=== PATIENT | female | born 1970 | race Caucasian/White ===

== ENCOUNTER 2020-03-15 01:21 | Outpatient (CLI) | payer OTHER, SELFPAY ==
[2020-03-15 22:13] LABS: SARS-CoV-2 RNA PCR Negative
== END 2020-03-15 01:22 | disposition home or self-care (01) ==
LOC: ANHCOVIDDT 01:22
PROVIDERS: Visit Provider Internal Medicine Gastroenterology
DX: Z01.812 Encounter for preprocedural laboratory examination (principal); Z20.828 Contact with and (suspected) exposure to other viral communicable diseases
CPT/HCPCS: 87635; C9803; U0003

== ENCOUNTER 2020-03-18 00:10 | Day surgery (SDC) | payer OTHER, SELFPAY ==
[2020-03-12 13:34] VITALS: BMI 28.8
--- NOTE | 2020-03-17 14:30 | WPDANESEPPF ---
Anes - Initial Pre Proc Eval Procedure: Operation Date: 03/18/20 07:30 Proposed Procedures p Screening Colonoscopy - David Cain MD Date/Time: 03/17/20 14:30 Surgeon: David Cain MD Pre Op Diagnosis: Neoplasm Screening Patient Data Age: 49 Gender: F Height: 1.68 m Weight: 81 kg Allergies Allergy/AdvReac Type Severity Reaction Status Date / Time No Known Allergies Allergy Mild Verified 03/18/20 06:35 Home Medications Medication Instructions Recorded Confirmed Type metoprolol succinate 100 mg 100 mg PO DAILY #90 tablet 07/13/19 03/12/20 Rx tablet,extended release 24 hr atorvastatin 10 mg tablet 10 mg PO DAILY #90 tablet 08/13/19 03/12/20 Rx zolpidem 10 mg tablet 10 mg PO ONCE #90 tablet 11/28/19 03/12/20 Rx venlafaxine [Effexor XR] 75 mg PO DAILY 03/12/20 03/12/20 History Patient hx anesthesia problems: none Family hx anesthesia problems: none PMFSH Past Medical History Medical History (Updated 03/17/20 @ 14:31 by Danish León MD) Anxiety Essential (primary) hypertension Insomnia Mixed hyperlipidemia Overweight (BMI 25.0-29.9) Post menopausal problems Family History Family History Father Hypertension Family history of coronary artery disease Mother Family history of lung cancer, Onset Age: 45 Patient's mother is Other Diabetes mellitus Social History Social History Smoking status: Never smoker Second hand tobacco smoke exposure: No Alcohol intake: current Substance use type: does not use Living arrangements: with family Gender identity (if verbalized by the patient): Female Sexual Orientation (if Verbalized by the Patient): Straight or Heterosexual Spiritual care concerns: No Anes - Eval Final PreProcedure Day of Procedure 03/17/20 14:30 Patient weight: overweight Heart: regular rate and rhythm Lungs: clear to auscultation and normal air movement Airway: Mallampati scale class II Neurological: alert and oriented Last oral intake: >/= 8 hours ASA classification: II Emergent: no Anesthetic plan: proceed Anesthesia type and monitoring: general GIVS Informed Consent: The patient's anesthetic plan and its attendant risks and benefits were discussed with the patient/family/POA. Questions were solicited and answers provided to the satisfaction of the patient/family/POA.
[2020-03-18 06:36] VITALS: BP 136/85; PULSE 102; RESP 22; TEMP 37; O2SAT 97; BMI 29.6
[2020-03-18] MEDS: LACTATED RINGERS 1,000 ML 150 ML IV CONT (06:49)
--- NOTE | 2020-03-18 08:03 | PM.HPGS ---
History of Present Illness History of Present Illness Consent: Risks, benefits, and alternatives have been discussed and questions answered. Patient agrees to proceed with procedure. Chief complaint: Neoplasm Screening Narrative: Karli Hunt is a 49 year old female here for first screening colonoscopy Review of Systems Constitutional: Constitutional: Denies headache(s) and Denies weakness Eyes: Eyes: Denies blurry vision ENT: Reports Normal hearing present, Denies headache(s) and Denies neck pain Cardiovascular: Cardiovascular: Denies chest pain and Denies dyspnea Respiratory: Respiratory: Denies dyspnea Gastrointestinal: Gastrointestinal: Reports no additional gastrointestinal complaints Genitourinary: Genitourinary: Denies dysuria Musculoskeletal: Musculoskeletal: Denies neck pain Integumentary/Breasts: Skin/Breast: Denies dry skin Neurologic: Reports Normal hearing present, Denies headache(s) and Denies weakness Psychiatric: Psychiatric: Denies anxiety Endocrine: Endocrine: Denies change in body appearance Hematologic/Lymphatic: Hematologic/Lymphatic: Denies easy bleeding Allergic/Immunologic: Allergic/Immunologic: Denies urticaria [facility] Past Medical History Medical History (Updated 03/18/20 @ 08:03 by David Cain MD) Anxiety Colon cancer screening Essential (primary) hypertension Insomnia Mixed hyperlipidemia Overweight (BMI 25.0-29.9) Post menopausal problems Family History Family History Father Hypertension Family history of coronary artery disease Mother Family history of lung cancer, Onset Age: 45 Patient's mother is Other Diabetes mellitus Social History Social History Smoking status: Never smoker Second hand tobacco smoke exposure: No Alcohol intake: current Substance use type: does not use Living arrangements: with family Gender identity (if verbalized by the patient): Female Sexual Orientation (if Verbalized by the Patient): Straight or Heterosexual Spiritual care concerns: No Meds Home Medications and Allergies Home Medications Medication Instructions Recorded Confirmed Type metoprolol succinate 100 mg 100 mg PO DAILY #90 tablet 07/13/19 03/12/20 Rx tablet,extended release 24 hr atorvastatin 10 mg tablet 10 mg PO DAILY #90 tablet 08/13/19 03/12/20 Rx zolpidem 10 mg tablet 10 mg PO ONCE #90 tablet 11/28/19 03/12/20 Rx venlafaxine [Effexor XR] 75 mg PO DAILY 03/12/20 03/12/20 History Allergies Allergy/AdvReac Type Severity Reaction Status Date / Time No Known Allergies Allergy Mild Verified 03/18/20 06:35 Vital Signs Vital Signs - 24 hr 03/18/20 06:36 Temperature 98.6 F Pulse Rate 102 H Respiratory Rate 22 H Blood Pressure 136/85 Pulse Oximetry 97 Exam Const: General: comfortable and no acute distress HENMT: General nose exam: Normal nares present Eyes: General: appearance normal, both eyes and all related structures Neck: Neck: no JVD Resp: Auscultation: clear to auscultation bilaterally Cardio: Rate: regular rate Rhythm: regular rhythm GI: Inspection: non-distended GI Palp: Yes Soft to palpation Skin: General skin exam: normal color Neuro: General: gait normal Speech: normal speech Extrem: General: normal to inspection Psych: Mental Status: mental status grossly normal Assessment and Plan Assessment and plan (1) Colon cancer screening: Code(s): Z12.11 - Encounter for screening for malignant neoplasm of colon Status: Acute Assessment and Plan: will proceed with colonoscopy
[2020-03-18 08:05] VITALS: BP 121/66; PULSE 80; RESP 21; O2SAT 100
[2020-03-18 08:15] VITALS: BP 129/68; PULSE 81; RESP 20; O2SAT 100
[2020-03-18 08:29] VITALS: BP 130/78; PULSE 80; RESP 18; O2SAT 100
== END 2020-03-18 08:45 | disposition home or self-care (01) ==
PROVIDERS: PCP Family Medicine; Visit Provider Internal Medicine Gastroenterology
PROC: 0DJD8ZZ Inspection of Lower Intestinal Tract, Via Natural or Artificial Opening Endoscopic (ICD-10-PCS; CPT 45378; principal; 2020-03-18 07:30)
DX: Z12.11 Encounter for screening for malignant neoplasm of colon (principal); D12.2 Benign neoplasm of ascending colon; K64.8 Other hemorrhoids; I10 Essential (primary) hypertension; E78.2 Mixed hyperlipidemia; F41.9 Anxiety disorder, unspecified
CPT/HCPCS: 45385; 88305; J2001; J2704; J7120

== ENCOUNTER → 2020-04-24 16:23 | Outpatient (CLI) | payer OTHER, SELFPAY ==
--- NOTE | ~2020-04-24 | MM_ITS ---
EXAMINATION: MM screening mile BI w loulou HISTORY: Screening TECHNIQUE: Craniocaudal and mediolateral oblique 3-D tomosynthesis images were obtained and synthetic 2-D images were generated. CAD analysis was submitted and interpreted. COMPARISON: Comparison to multiple prior studies sequentially, with oldest reviewed study dated 11/2013. BREAST PARENCHYMAL COMPOSITION: The breasts are heterogenously dense, which may obscure small masses. FINDINGS: There are bilateral focal asymmetries. Right breast asymmetry is medially located on CC vie w and left breast asymmetry is inferior aspect of the left breast on MLO view. IMPRESSION: 1. Bilateral breast asymmetries. 2. Additional mammographic views and possible breast ultrasound are recommended. BI-RADS Category 0: Incomplete: Needs additional imaging evaluation. Reviewed, dictated and finalized at location A. ESS COACH IMPRESSION: 1. Bilateral breast asymmetries. 2. Additional mammographic views and possible breast ultrasound are recommended . BI-RADS Category 0: Incomplete: Needs additional imaging evaluation.
== END ==
DX: Z12.31 Encounter for screening mammogram for malignant neoplasm of breast (principal); R92.8 Other abnormal and inconclusive findings on diagnostic imaging of breast
CPT/HCPCS: 77063; 77067

== ENCOUNTER → 2020-06-02 09:27 | Outpatient (CLI) | payer OTHER, SELFPAY ==
--- NOTE | ~2020-06-02 | MMUS_ITS ---
EXAMINATION: MM diagnostic mile BI w loulou, US breast LT limited HISTORY: Bilateral mammographic asymmetries reported on 04/24/2020 bilateral digital screening mammog fani TECHNIQUE: Additional 3-D tomosynthesis images of both breasts were performed and synthetic 2-D image s were generated. CAD analysis was submitted and interpreted. High resolution lower outer quadrant le ft breast ultrasound was performed. COMPARISON: 04/24/2020 bilateral digital screening mammogram FINDINGS: MAMMOGRAPHIC FINDINGS: No reproducible mass or architectural distortion is noted in the right breast. The asymmetry reported on the right cc view in the posterior inner right breast is not confirmed on Tomosynthesis coned com pression CC image or Tomosynthesis ML view. Possible subcentimeter approximately 7 mm circumscribed opacity is suggested in the anterior lower ou ter quadrant of the left breast; ultrasound correlation was obtained. ULTRASOUND: There is prominent branching duct at 4:00 4 cm from the nipple, which corresponds to the mammographic finding. There is no suspicious mass or shadowing in the lower outer quadrant of the left breast. IMPRESSION: 1. No mammographic evidence for malignancy in either breast 2. Routine annual mammographic screening is recommended. BI-RADS Category 2: Benign finding(s). Reviewed, dictated and finalized at location A. ER TENDER IMPRESSION: 1. No mammographic evidence for malignancy in either breast 2. Routine annual mammographic screening is recommended. BI-RADS Category 2: Benign finding(s).
== END ==
DX: R92.2 Inconclusive mammogram (principal)
CPT/HCPCS: 76642; 77062; 77066; G0279

== ENCOUNTER → 2022-06-04 16:03 | Outpatient (CLI) | payer OTHER, SELFPAY ==
--- NOTE | ~2022-06-04 | MM_ITS ---
EXAMINATION: MM screening [facility] BI w loulou HISTORY: Screening mammogram TECHNIQUE: Craniocaudal and mediolateral oblique 3-D tomosynthesis images were obtained and synthetic 2-D images were generated. CAD analysis was submitted and interpreted. COMPARISON: 06/02/2020, 04/24/2020, 06/05/2018, 04/23/2016 BREAST PARENCHYMAL COMPOSITION: There are scattered areas of fibroglandular density. FINDINGS: No suspicious mass, calcification, or architectural distortion are identified in either maria eugenia ast to suggest malignancy. There has been no suspicious interval change. IMPRESSION: 1. No mammographic evidence of malignancy. 2. Recommend routine screening mammography in one year. BI-RADS Category 1: Negative Reviewed, dictated and finalized at location A. LINE ENGINEER
== END ==
PROVIDERS: PCP Family Medicine
DX: Z12.31 Encounter for screening mammogram for malignant neoplasm of breast (principal)
CPT/HCPCS: 77063; 77067

== ENCOUNTER 2022-11-02 11:33 | Outpatient (CLI) | payer OTHER, SELFPAY ==
--- NOTE | ~2022-11-02 | XR_ITS ---
AP view of the pelvis and AP and lateral views of the bilateral hips Clinical history: Pain Findings: No acute fracture or dislocation is seen. Osseous alignment is anatomic. Bilateral hip and SI joint spaces are preserved. Soft tissues are unremarkable. Impression: No significant abnormality is seen. Reviewed, dictated and finalized at location . Impression: No significant abnormality is seen.
--- NOTE | ~2022-11-02 | XR_ITS ---
XR knee LT 3V 11/02/2022 12:07 Indication: Left knee pain Procedure: 4 views left knee Comparison: No prior studies for comparison. Findings: No fracture, subluxation or dislocation. No significant joint effusion. No foreign bodies. Impression: 1: No significant bone or joint abnormality. Reviewed, dictated and finalized at location L. Impression: 1: No significant bone or joint abnormality.
--- NOTE | ~2022-11-02 | XR_ITS ---
XR knee RT 3V 11/02/2022 12:08 INDICATION: Chronic bilateral knee pain PROCEDURE: 4 views right knee COMPARISON: No prior studies for comparison. FINDINGS: Fracture, dislocation or subluxation is not identified. No joint effusion. No significant j oint space narrowing. The soft tissues appear within normal limits. No foreign bodies are identified . IMPRESSION: 1: No significant bone or joint abnormality. Reviewed, dictated and finalized at location L.
== END 2022-11-02 11:34 | disposition home or self-care (01) ==
PROVIDERS: PCP Family Medicine; Visit Provider Physician Assistant Medical
DX: M25.551 Pain in right hip (principal); M25.552 Pain in left hip; M25.561 Pain in right knee; M25.562 Pain in left knee
CPT/HCPCS: 73521; 73562

== ENCOUNTER → 2022-11-10 13:20 | Outpatient (CLI) | payer OTHER, SELFPAY ==
--- NOTE | ~2022-11-10 | XR_ITS ---
EXAM: XR lumbar spine 2-3V DATE: 11/10/2022 13:41 HISTORY: no injury lbp mid to left side for years . COMPARISON: None available. FINDINGS: Severe thoracolumbar scoliosis. 5 nonrib-bearing lumbar-type vertebral bodies. Pedicles int act. Normal vertebral body alignment. Vertebral body heights preserved. Multilevel disc space narrowi ng and marginal osteophytosis, severe at L5-S1, mild at the remaining lumbar levels. The level severe mid and lower lumbar facet hypertrophy/sclerosis. No fracture or dislocation. IMPRESSION: Severe scoliosis. Severe degenerative disc disease at L5-S1. Severe mid and lower lumbar facet arthropathy. Reviewed, dictated and finalized at location K.
== END ==
PROVIDERS: PCP Family Medicine; Visit Provider Physician Assistant Medical
DX: M41.9 Scoliosis, unspecified (principal); M51.37 Other intervertebral disc degeneration, lumbosacral region
CPT/HCPCS: 72100

== ENCOUNTER 2023-10-21 09:25 | Outpatient (CLI) | payer OTHER, SELFPAY ==
--- NOTE | ~2023-10-21 | US_ITS ---
Abdominal Sonogram: Real-time sonographic imaging of the abdomen was performed. Clinical History: Abnormal blood chemistry findings Findings: The liver appears mildly echogenic, with no evidence of mass lesion or bile duct dilatatio n. Main portal vein demonstrates normal direction of flow. The spleen is normal in size without evide nce of focal lesion. The gallbladder is well distended, and contains echogenic gallstones. No gallbl adder wall thickening evident. The common bile duct measures 5 mm. The visualized pancreas, aorta, a nd IVC are unremarkable. The right kidney measures 10.9 cm in length and the left kidney measures 9. 3 cm. There is no hydronephrosis or renal calculus. Impression: Probable fatty infiltration of the liver. Cholelithiasis. Reviewed, dictated and finalized at [facility]. Impression: Probable fatty infiltration of the liver. Cholelithiasis.
== END 2023-10-21 09:26 ==
PROVIDERS: PCP Family Medicine; Visit Provider Nurse Practitioner Family
DX: R79.89 Other specified abnormal findings of blood chemistry (principal); K80.20 Calculus of gallbladder without cholecystitis without obstruction
CPT/HCPCS: 76700

== ENCOUNTER 2024-02-27 14:51 | Outpatient (CLI) | payer OTHER, SELFPAY ==
--- NOTE | ~2024-02-27 | MM_ITS ---
EXAMINATION: MM screening mile BI w loulou HISTORY: Screening TECHNIQUE: Craniocaudal and mediolateral oblique 3-D tomosynthesis images were obtained and synthetic 2-D images were generated. CAD analysis was submitted and interpreted. COMPARISON: Comparison to multiple prior studies sequentially, with oldest reviewed study dated 01/2016. BREAST PARENCHYMAL COMPOSITION: Not dense: There are scattered areas of fibroglandular density. FINDINGS: There are developing bilateral breast asymmetries in the upper inner quadrant of the right breast posteriorly and the lower inner quadrant of the left breast anteriorly. There are no suspiciou s calcifications. IMPRESSION: 1. Developing bilateral breast asymmetries. 2. Additional mammographic views and possible breast ultrasound are recommended. BI-RADS Category 0: Incomplete: Needs additional imaging evaluation. Reviewed, dictated and finalized at location B. IMPRESSION: 1. Developing bilateral breast asymmetries. 2. Additional mammographic views and possible breast ultrasound are recommended . BI-RADS Category 0: Incomplete: Needs additional imaging evaluation.
== END 2024-02-27 14:52 | disposition home or self-care (01) ==
LOC: MICIMG 14:53
PROVIDERS: PCP Family Medicine; Visit Provider Family Medicine
DX: Z12.31 Encounter for screening mammogram for malignant neoplasm of breast (principal); R92.8 Other abnormal and inconclusive findings on diagnostic imaging of breast
CPT/HCPCS: 77063; 77067

== ENCOUNTER 2024-03-27 08:25 | Outpatient (CLI) | payer BC, SELFPAY ==
--- NOTE | ~2024-03-27 | MMUS_ITS ---
EXAMINATION: MM diagnostic mile BI w loulou, US breast LT limited HISTORY: Bilateral breast asymmetries TECHNIQUE: Additional 3-D tomosynthesis images of the breasts were performed and synthetic 2-D images were generated. CAD analysis was submitted and interpreted. High resolution limited left breast ultr asound was performed. COMPARISON: 02/27/2024, 06/04/2022, 06/02/2020 BREAST PARENCHYMAL COMPOSITION:Not Dense. There are scattered areas of fibroglandular density. FINDINGS: MAMMOGRAPHIC FINDINGS: The right breast asymmetry effaces with spot compression. No persistent mass lesion or distortion. Sp ot compression views of the left subareolar region demonstrate persistent probable ovoid mass in the lower, inner subareolar region measuring approximate 7 mm. ULTRASOUND: Sonographic imaging of the left subareolar region demonstrates dilated ducts at the left 6:00 region. No intraductal mass seen. No other sonographic abnormality seen. IMPRESSION: Dilated ducts at the left 6:00 position in the subareolar region. No intraductal mass seen. No other mass seen. 6 month follow-up left mammogram/ultrasound recommended to assure stability. No significant abnormality of the right breast. BI-RADS category 3, probably benign findings. Reviewed, dictated and finalized at location . AND FIXTURE REPAIRER IMPRESSION: Dilated ducts at the left 6:00 position in the subareolar region. No intraduct al mass seen. No other mass seen. 6 month follow-up left mammogram/ultrasound r ecommended to assure stability. No significant abnormality of the right breast. BI-RADS category 3, probably benign findings.
== END 2024-03-27 08:26 | disposition home or self-care (01) ==
PROVIDERS: PCP Family Medicine; Visit Provider Physician Assistant Medical
DX: N64.89 Other specified disorders of breast (principal)
CPT/HCPCS: 76642; 77062; 77066; G0279

== ENCOUNTER 2024-07-23 11:09 | Outpatient (CLI) | payer BC, SELFPAY ==
--- NOTE | ~2024-07-23 | MR_ITS ---
EXAMINATION: MR abdomen wo/w con DATE: 07/23/2024 12:33 INDICATION: Fatty change of liver, not elsewhere classified. Abnormal blood chemistry. TECHNIQUE: Magnetic resonance imaging (MRI) of the abdomen was performed without and with 19 mL Multi Alexis intravenous contrast. COMPARISON: Abdomen ultrasound 10/21/2023 FINDINGS: There is diffuse hepatic steatosis. There are cysts in the liver measuring up to 10 mm. There are gal lstones in the gallbladder, which is normal in size. The spleen, pancreas, adrenal glands, and kidney s are normal. There are no dilated loops of bowel. There are no pathologically enlarged lymph nodes. There is no free intraperitoneal fluid. IMPRESSION: 1. Diffuse hepatic steatosis. 2. Cholelithiasis. Reviewed, dictated and finalized at location B.
--- OUTSIDE RECORDS SUMMARY | 2024-07-23 13:25 | XMS_ITS | Clinical Summary ---
Author Organization [facility] Address [address] [place] [address] Care Team Providers Care Textiles And Clothing Teacher Name Role Phone Jones Shelton MD Primary Care Provider Source Comments [facility],non-owned Affiliates and Associated Physician Practices is amultiple site organization consisting of ambulatory clinics and hospital sitesin [place], [place], [place] and [place]. This disclosure is being madepursuant to the Care Everywhere program and may not contain all information available regarding this patient. Last updated 18.[facility] Allergies No known active allergies Medications * Be aware that medications may not be up to date on this document. Alwaysverify current medications with the patient. Medication Sig Dispensed Refills Start Date End Date Status ATORVASTATIN CALCIUM PO Active Cholecalciferol (VITAMIN D-3 PO) Active Zolpidem Tartrate (ZOLPIDEM PO) Active predniSONE (DELTASONE) 20 MG tablet Take 1 tablet by mouth 2 times daily 14 tablet 05/25/2017 Active albuterol HFA (VENTOLIN HFA) 108 (90 BASE) MCG/ACT inhaler Inhale 2 puffs by mouth every 4 hours as needed for Wheezing or Cough 1 Inhaler 05/25/2017 Active Active Problems No known active problems Social History Tobacco Use Types Packs/Day Years Used Date Smoking Tobacco: Never Smokeless Tobacco: Never Sex and Gender Information Value Date Recorded Sex Assigned at Not on file Gender Identity Not on file Sexual Orientation Not on file Last Filed Vital Signs Vital Sign Reading Time Taken Comments Blood Pressure 126/84 05/25/2017 2:35 PM NATIONAL SALES CONSULTANT Pulse 98 05/25/2017 2:35 PM NATIONAL SALES CONSULTANT Temperature 36.6 C (97.9 F) 05/25/2017 2:35 PM NATIONAL SALES CONSULTANT Respiratory Rate 16 05/25/2017 2:35 PM NATIONAL SALES CONSULTANT Oxygen Saturation 96% 05/25/2017 2:35 PM NATIONAL SALES CONSULTANT Inhaled Oxygen Concentration - - Weight 77.1 kg (170 lb) 05/25/2017 2:35 PM NATIONAL SALES CONSULTANT Height 167.6 cm (5' 6 ) 05/25/2017 2:35 PM NATIONAL SALES CONSULTANT Body Mass Index 27.44 05/25/2017 2:35 PM NATIONAL SALES CONSULTANT Plan of Treatment Health Maintenance Due Date Last Done Comments COLOGUARD (AGES 45-75) - COL ON CA SCREENING 1969 COLON MONITORING 1969 COLONOSCOPY - COLON CA SCREENING 1969 CT COLONOGRAPHY - COLON CA SCREENING 1969 Colorectal Cancer Screening 1969 FIT - COLON CA SCREENING 1969 FLEX SIG - COLON CA SCREENING 1969 MAMMOGRAM 1969 PAP SMEAR 1969 HIV SCREENING 1984 HEPATITIS C SCREENING 07/27/1987 DTAP/TDAP/TD VACCINES (1 - Tdap) 1988 HEPATITIS B VACCINE (1 of 3 - 19+ 3-dose series) 1988 SCREENING FOR DIABETES 02/16/2017 PNEUMOCOCCAL VACCINE 50+ (1 of 1 - PCV) 08/01/2019 ZOSTER VACCINE (1 of 2) 08/01/2019 COVID-19 VACCINE (2023-2 5 season) 2024 INFLUENZA VACCINE (#1) 2024 DEPRESSION SCREENING 05/16/2024 HIB VACCINE Aged Out No longer eligi ble based on patient's age to complete this topic HPV VACCINE Aged Out No longer eligi ble based on patient's age to complete this topic MENINGOCOCCAL (Group B) VACCINE Aged Out No longer eligible based on patient's age to complete this topic MENINGOCOCCAL VACCINE Aged Out No ernestina arline eligible based on patient's age to complete this topic PNEUMOCOCCAL VACCINE Aged Out No long er eligible based on patient's age to complete this topic Care Teams Textiles And Clothing Teacher Relationship Specialty Start Date End Date Jones Shelton MD [address] [place] [address] PCP - General Family Medicine 02/16/17
--- OUTSIDE RECORDS SUMMARY | 2024-07-23 13:26 | XMS_ITS | Encounter Summary ---
Author Organization [facility] Address [address] [place] [address] Care Team Providers Care Donor Support Technician Name Role Phone Jones Shelton MD Primary Care Provider Encounter Details Date Type Department Care Team (Late [facility]) Description 07/07/2023 Lab Requisition [facility] - [facility] Lab [address] [place] [address] Mariela Nguyen MD [address] [place] [address] Social History Tobacco Use Types Packs/Day Years Used Date Smoking Tobacco: Never Smokeless Tobacco: Never Sex and Gender Information Value Date Recorded Sex Assigned at Not on file Gender Identity Not on file Sexual Orientation Not on file documented as of this encounter Plan of Treatment Not on file documented as of this encounter Visit Diagnoses Not on filedocumented in this encounter Care Teams Donor Support Technician Relationship Specialty Start Date End Date Jones Shelton MD [address] [place] [address] PCP - General Family Medicine 02/16/17 documented as of this encounter
--- OUTSIDE RECORDS SUMMARY | 2024-07-23 13:26 | XMS_ITS | Patient Health Summary ---
Author Organization [facility] [employer] Address [address] [place] [address] Care Team Providers Care Logging Specialist Name Role Phone Jones Shelton MD Primary Care Provider [phone] Note from [facility] [facility],non-owned Affiliates and Associated Physician Practices is amultiple site organization consisting of ambulatory clinics and hospital sitesin [place], [place], [place] and [place]. This disclosure is being madepursuant to the Care Everywhere program and may not contain all information available regarding this patient. Last updated 18.[facility] Allergies No known active allergies Medications * Be aware that medications may not be up to date on this document. Alwaysverify current medications with the patient. * ATORVASTATIN CALCIUM PO * Cholecalciferol (VITAMIN D-3 PO) * Zolpidem Tartrate (ZOLPIDEM PO) * predniSONE (DELTASONE) 20 MG tablet(Started 05/25/2017) Take 1 tablet by mouth 2 times daily * albuterol HFA (VENTOLIN HFA) 108 (90 BASE) MCG/ACT inhaler(Started 05/25/2017) Inhale 2 puffs by mouth every 4 hours as needed for Wheezing or Cough Active Problems No known active problems Social History Tobacco Use Types Packs/Day Years Used Date Smoking Tobacco: Never Smokeless Tobacco: Never Sex and Gender Information Value Date Recorded Sex Assigned at Not on file Gender Identity Not on file Sexual Orientation Not on file Last Filed Vital Signs Vital Sign Reading Time Taken Comments Blood Pressure 126/84 05/25/2017 2:35 PM RECORD CHANGER TESTER Pulse 98 05/25/2017 2:35 PM RECORD CHANGER TESTER Temperature 36.6 C (97.9 F) 05/25/2017 2:35 PM RECORD CHANGER TESTER Respiratory Rate 16 05/25/2017 2:35 PM RECORD CHANGER TESTER Oxygen Saturation 96% 05/25/2017 2:35 PM RECORD CHANGER TESTER Inhaled Oxygen Concentration - - Weight 77.1 kg (170 lb) 05/25/2017 2:35 PM RECORD CHANGER TESTER Height 167.6 cm (5' 6 ) 05/25/2017 2:35 PM RECORD CHANGER TESTER Body Mass Index 27.44 05/25/2017 2:35 PM RECORD CHANGER TESTER Procedures * DERMATOPATHOLOGY(Performed 07/07/2023) * STREP A SCREEN - POINT OF CARE (AMB) STL(Performed 02/16/2017) Performed for Acute pharyngitis, unspecified etiology Results * DERMATOPATHOLOGY (07/07/2023 3:33 AM RECORD CHANGER TESTER) Case Report Dermatopathology Report Case: [id number] Authorizing Provider: Keyona Garcia DO Collected: 07/07/2023 03:33 AM Ordering Location: [facility] DermPath Lab Received: 07/08/2023 12:30 PM Pathologist: Julissa Sullivan MD Specimen: Skin, mid crown 11:04 AM [facility] DERMATOPATHOLOGY LABORATORY Final Diagnosis Specimen A. SKIN, mid crown: SEBORRHEIC KERATOSIS, INFLAMED; SUPERFICIAL PORTIONS OF (L82.0) (see microscopic description) 11:04 AM [facility] DERMATOPATHOLOGY LABORATORY Clinical History ISK vs SCC, Growing Irritated 11:04 AM [facility] DERMATOPATHOLOGY LABORATORY Gross Description Specimen A: Received is one formalin filled container labeled with the patient's name and designated mid crown. The specimen consists of a shave biopsy measuring 6x6x1 mm. Jar 0. 11:04 AM [facility] DERMATOPATHOLOGY LABORATORY Microscopic Description Specimen A. SKIN, mid crown: There are superficial portions of hyperkeratosis, parakeratosis, papillomatosis, and acanthosis of the epidermis. 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 11:04 AM [facility] DERMATOPATHOLOGY LABORATORY Disclaimer An external and internal positive and negative controls are appropriate for the histochemical, immunohistochemical and immunofluorescence stain(s) in this case (if any), except where stated explicitly. The performance characteristics of the stain(s) cited in this report were developed and its performance characteristic determined by the Dermatopathology Laboratory at [facility], directed by Dr. Alfredo Berman. These tests need not be, and therefore are not, approved by the [place] Food and Drug Administration. The tests are used for clinical purposes. Billing Codes Specimen Charges Stain Charges 95527 1 4 11:04 AM [facility] DERMATOPATHOLOGY LABORATORY Embedded Images 4 11:04 AM [facility] DERMATOPATHOLOGY LABORATORY Pathology/Cytolo gy TISSUE SPECIMEN FROM SKIN / Unknown 07/07/2023 3:33 AM RECORD CHANGER TESTER 07/08/2023 12:30 PM RECORD CHANGER TESTER Keyona Garcia DO LAB - PATHOLOGY/C YTOLOGY ORDERABLES DERMATOPATHOLOGY LABORATORY [facility] - Department of Dermatology [facility] Medicine [address] [place] [address], [address] [phone] * STREP A SCREEN (02/16/2017) Strep A Rapid POCT Negative Negative Strep A Internal Control Present Lot # [id number] Expiration Date [id number] Throat ENTIRE THROAT (SURFACE REGION OF NECK) / Unknown 02/16/2017 Obie De FLOW NURSE-VP CUSTOMER SERV[facility] LAB - POINT OF CARE ORDERABLES Care Teams Logging Specialist Relationship Specialty Start Date End Date Jones Shelton MD [address] [place] [address] PCP - General Family Medicine 02/16/17
--- OUTSIDE RECORDS SUMMARY | 2024-07-23 13:26 | XMS_ITS | Referral Summary ---
Author Organization [facility] [employer] Address [address] [place] [address] Care Team Providers Care Hand Heel Seat Fitter Name Role Phone Jones Shelton MD Primary Care Provider [phone] Source Comments [facility] [employer],non-owned Affiliates and Associated Physician Practices is amultiple site organization consisting of ambulatory clinics and hospital sitesin [place], [place], [place] and [place]. This disclosure is being madepursuant to the Care Everywhere program and may not contain all information available regarding this patient. Last updated 18.[facility] [employer] Allergies No known active allergies Medications * [...] Comments Blood Pressure 126/84 05/25/2017 2:35 PM METHODS AND PROCEDURES ANALYST Pulse 98 05/25/2017 2:35 PM METHODS AND PROCEDURES ANALYST Temperature 36.6 C (97.9 F) 05/25/2017 2:35 PM METHODS AND PROCEDURES ANALYST Respiratory Rate 16 05/25/2017 2:35 PM METHODS AND PROCEDURES ANALYST Oxygen Saturation 96% 05/25/2017 2:35 PM METHODS AND PROCEDURES ANALYST Inhaled Oxygen Concentration - - Weight 77.1 kg (170 lb) 05/25/2017 2:35 PM METHODS AND PROCEDURES ANALYST Height 167.6 cm (5' 6 ) 05/25/2017 2:35 PM METHODS AND PROCEDURES ANALYST Body Mass Index 27.44 05/25/2017 2:35 PM METHODS AND PROCEDURES ANALYST Plan of Treatment Not on file Care Teams Hand Heel Seat Fitter Relationship Specialty Start Date End Date Jones Shelton MD [address] [place] [address] PCP - General Family Medicine 02/16/17
--- OUTSIDE RECORDS SUMMARY | 2024-07-23 13:26 | XMS_ITS | Clinical Summary ---
Author Organization [facility] Address [address] [place] [address] Care Team Providers Care Trapeze Artist Name Role Phone Unavailable Primary Care Provider Unavailabl e Immunizations Name Administration Dates Next Due PFIZER COVID-19 (ORIGINAL FO RMULATION, PURPLE CAP) mRNA, LNP-S, PF, 30 MCG/0.3 ML DOSE 07/26/2020,07/05/2020 Social History Tobacco Use Types Packs/Day Years Used Date Smoking Tobacco: Never Assessed Comments Unknown Sex and Gender Information Value Date Recorded Sex Assigned at Not on file Legal Sex Female 6:02 PM PHOTO EQUIPMENT TECHNICIAN Gender Identity Not on file Sexual Orientation Not on file Plan of Treatment Health Maintenance Due Date Last Done Comments Cervical Cancer Screening Pa p Smear (Age 30 to 64) Every 3 Years 1969 Colorectal Cancer Screening Colonoscopy (10 Years) 1969 Annual Physical 1972 Hepatitis C 08/01/1987 DTaP, Tdap and Td Vaccines ( 1 - Tdap) 1988 Hepatitis B Vaccines (1 of 3 - 19+ 3-dose series) 1988 Cervical Cancer Screening Pa p with HPV Testing (Age 30 to 64) Every 5 Years 08/01/1999 Cervical Cancer Screening wi th HPV 08/01/1999 Mammogram Screening 2009 Zoster Vaccines (1 of 2) 08/01/2019 COVID-19 Vaccine (2023-2 5 season) 2024 07/26/2020, 07/05/2020 Influenza Adult (#1) 2024 Meningococcal B Vaccine Aged Out No l onger eligible based on patient's age to complete this topic Meningococcal Vaccine Aged Out No ernestina arline eligible based on patient's age to complete this topic Pneumococcal Vaccine: Pediatrics (0 to 5 Years) and At-Risk Patients (6 to 64 Years) Aged Out No longer eligible b ased on patient's age to complete this topic RSV Immunizations Under 20 Months Aged Out No longer eligible b ased on patient's age to complete this topic
--- OUTSIDE RECORDS SUMMARY | 2024-07-23 13:26 | XMS_ITS | Encounter Summary ---
Author Organization [facility] Address [address] [place] [address] Care Team Providers Care Lace Machine Operator Name Role Phone Jones Shelton MD Primary Care Provider [phone] Encounter Details Date Type Department Care Team (Late [facility]) Description 07/08/2023 Lab Requisition [facility] - DermPath Lab [address] [place] [address] Keyona Garcia DO [address] [facility] [address] [place] [address] Social History Tobacco Use Types Packs/Day Years Used Date Smoking Tobacco: Never Smokeless Tobacco: Never Sex and Gender Information Value Date Recorded Sex Assigned at Not on file Gender Identity Not on file Sexual Orientation Not on file documented as of this encounter Plan of Treatment Not on file documented as of this encounter Procedures Procedure Name Priority Date/Time Associated Diagnosis Comments DERMATOPATHOLOGY Routine 07/07/2023 3:33 AM CHECKING DEPARTMENT SUPERVISOR documented in this encounter Results * DERMATOPATHOLOGY (07/07/2023 3:33 AM CHECKING DEPARTMENT SUPERVISOR) Case Report Dermatopathology Report Case: [id number] Authorizing Provider: Keyona Garcia DO Collected: 07/07/2023 03:33 AM Ordering Location: [facility] DermPath Lab Received: 07/08/2023 12:30 PM Pathologist: Julissa Sullivan MD Specimen: Skin, mid crown 11:04 AM [facility] DERMATOPATHOLOGY LABORATORY Final Diagnosis Specimen A. SKIN, mid crown: SEBORRHEIC KERATOSIS, INFLAMED; SUPERFICIAL PORTIONS OF (L82.0) (see microscopic description) 11:04 AM [facility] DERMATOPATHOLOGY LABORATORY Clinical History ISK vs SCC, Growing Irritated 11:04 AM [facility] DERMATOPATHOLOGY LABORATORY Gross Description Specimen A: Received is one formalin filled container labeled with the patient's name and designated mid crown. The specimen consists of a shave biopsy measuring 6x6x1 mm. Jar 0. 11:04 AM [facility] DERMATOPATHOLOGY LABORATORY Microscopic Description Specimen A. SKIN, mid crown: There are superficial portions of hyperkeratosis, parakeratosis, papillomatosis, and acanthosis of the epidermis. 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 11:04 AM [facility] DERMATOPATHOLOGY LABORATORY Disclaimer An external and internal positive and negative controls are appropriate for the histochemical, immunohistochemical and immunofluorescence stain(s) in this case (if any), except where stated explicitly. The performance characteristics of the stain(s) cited in this report were developed and its performance characteristic determined by the Dermatopathology Laboratory at [facility], directed by Dr. Alfredo Berman. These tests need not be, and therefore are not, approved by the [place] Food and Drug Administration. The tests are used for clinical purposes. Billing Codes Specimen Charges Stain Charges 70632 1 11:04 AM [facility] DERMATOPATHOLOGY LABORATORY Embedded Images 11:04 AM [facility] DERMATOPATHOLOGY LABORATORY Pathology/Cytolo gy TISSUE SPECIMEN FROM SKIN / Unknown 07/07/2023 3:33 AM CHECKING DEPARTMENT SUPERVISOR 07/08/2023 12:30 PM CHECKING DEPARTMENT SUPERVISOR Keyona Garcia DO LAB - PATHOLOGY/C YTOLOGY ORDERABLES DERMATOPATHOLOGY LABORATORY [facility] - Department of Dermatology [address], [address] [phone] documented in this encounter Visit Diagnoses Not on filedocumented in this encounter Care Teams Lace Machine Operator Relationship Specialty Start Date End Date Jones Shelton MD [address] [place] [address] PCP - General Family Medicine 02/16/17 documented as of this encounter
--- OUTSIDE RECORDS SUMMARY | 2024-07-23 13:26 | XMS_ITS | Clinical Summary ---
Author Organization [facility] Address [address] [place] [address] Phone Care Team Providers Care Consultative Sales Associate Name Role Phone Jones Shelton MD Primary Care Provider [phone] Allergies Active Allergy Reactions Criticality Noted Date Comments Hydrocodone-Acetaminophen Nausea and Vomiting,Dizziness Low 05/07/2021 Medications atorvastatin (LIPITOR) 10 mg tablet Take 10 mg by mouth daily. AM Active metoprolol succinate (TOPROL XL) 100 mg Extended Release 24 hour tablet Take 100 mg by mouth daily. PM Active venlafaxine (EFFEXOR XR) 75 mg Extended Release 24 hour capsule Take 75 mg by mouth daily. Active zolpidem (AMBIEN) 5 mg tablet Take 5 mg by mouth nightly as needed for Insomnia. Active multivit-min/iron /folic acid/K (ADULTS MULTIVITAMIN ORAL) Take by mouth. Active L. acidophilus/L. rhamnosus (PROBIOTIC ORAL) Take by mouth. Active MAGNESIUM ORAL Take by mouth. Active docosahexaenoic acid/epa (FISH OIL ORAL) Take by mouth. Active Active Problems No known active problems Social History Tobacco Use Types Packs/Day Years Used Date Smoking Tobacco: Never Smokeless Tobacco: Never Alcohol Use Standard Drinks/Week Comments Yes 1 (1 standard drink = 0.6 oz pur e alcohol) Comments No Sex and Gender Information Value Date Recorded Sex Assigned at Not on file Legal Sex Female 3:03 PM OFFICE MACHINE MECHANIC Gender Identity Not on file Sexual Orientation Not on file Last Filed Vital Signs Vital Sign Reading Time Taken Comments Blood Pressure 161/82 05/12/2021 9:05 AM OFFICE MACHINE MECHANIC Pulse 90 05/12/2021 9:05 AM OFFICE MACHINE MECHANIC Temperature 36.8 C (98.3 F) 05/12/2021 9:05 AM OFFICE MACHINE MECHANIC Respiratory Rate 18 05/12/2021 9:05 AM OFFICE MACHINE MECHANIC Oxygen Saturation 97% 05/12/2021 9:05 AM OFFICE MACHINE MECHANIC Inhaled Oxygen Concentration - - Weight 85.4 kg (188 lb 4.8 oz) 05/11/2021 9:23 A M OFFICE MACHINE MECHANIC Height 167.6 cm (5' 6 ) 05/11/2021 9:23 AM OFFICE MACHINE MECHANIC Body Mass Index 30.39 05/11/2021 9:23 AM OFFICE MACHINE MECHANIC Plan of Treatment Health Maintenance Due Date Last Done Comments DTAP/TDAP/TD VACCINES (1 - Tdap) 1988 HEPATITIS B VACCINES (1 of 3 - 19+ 3-dose series) 1988 CERVICAL CANCER SCREENING 08/01/1999 BREAST CANCER SCREENING 2009 COLORECTAL SCREENING 2014 Colorectal Cancer Screening 2014 FIT-DNA Q 3 years 2014 FIT/FOBT Q 1 year 2014 Flex Sig/CT Colonography Q 5 years 2014 ZOSTER VACCINE (1 of 2) 08/01/2019 INFLUENZA VACCINE (#1) 2023 COVID-19 Vaccine ( season) 2024, 07/05/2020 Insurance Advance Directives For more information, please contact: [phone] Documents on File Type Date Recorded Patient Scrap Baller Expl anation Advance Directive POA 05/07/2021 1:31 PM Advance Directive POA * Full Code (Latest Code Status on File) Date Activated Date Inactivated Comments 05/11/2021 2:23 PM 05/12/2021 1:01 PM * Full Code Date Activated Date Inactivated Comments 05/11/2021 9:27 AM 05/11/2021 2:23 PM Care Teams Consultative Sales Associate Relationship Specialty Start Date End Date Jones Shelton MD [address] [place] [address] PCP - General Family Practice 05/07/21
== END 2024-07-23 11:10 | disposition home or self-care (01) ==
PROVIDERS: PCP Physician Assistant Medical; Visit Provider Nurse Practitioner Family
DX: K76.0 Fatty (change of) liver, not elsewhere classified (principal); R79.89 Other specified abnormal findings of blood chemistry; K80.20 Calculus of gallbladder without cholecystitis without obstruction
CPT/HCPCS: 74183; A9577

== ENCOUNTER 2024-10-25 08:18 | Outpatient (CLI) | payer BC, SELFPAY ==
--- NOTE | ~2024-10-25 | MMUS_ITS ---
EXAMINATION: MM diagnostic mile LT w loulou, US breast LT limited HISTORY: Follow-up left breast asymmetry TECHNIQUE: Additional 3-D tomosynthesis images of the left breast were performed and synthetic 2-D im ages were generated. CAD analysis was submitted and interpreted. High resolution Limited left breast ultrasound was performed. COMPARISON: Comparison to multiple prior studies sequentially, with oldest reviewed study dated 06/05. BREAST PARENCHYMAL COMPOSITION: Dense: The breasts are heterogeneously dense, which may obscure small masses FINDINGS: MAMMOGRAPHIC FINDINGS: There are no suspicious masses, calcifications or architectural distortion in the left breast to sugg est malignancy. ULTRASOUND: Limited left breast ultrasound: No suspicious solid or cystic mass. Mildly prominent ducts. No sonogr aphic evidence for malignancy. IMPRESSION: 1. No evidence for malignancy in the left breast. 2. Routine yearly screening mammogram and regular clinical breast examination are recommended. BI-RADS Category 2: Benign finding(s). Reviewed, dictated and finalized at location [] IMPRESSION: 1. No evidence for malignancy in the left breast. 2. Routine yearly screening mammogram and regular clinical breast examination a re recommended. BI-RADS Category 2: Benign finding(s).
== END 2024-10-25 08:19 | disposition home or self-care (01) ==
PROVIDERS: PCP Family Medicine; Visit Provider Physician Assistant Medical
DX: R92.8 Other abnormal and inconclusive findings on diagnostic imaging of breast (principal)
CPT/HCPCS: 76642; 77061; 77065; G0279

== ENCOUNTER 2024-12-07 12:54 | Outpatient (CLI) | payer BC, SELFPAY ==
--- NOTE | ~2024-12-07 | DEXA_ITS ---
Bone Density Report Name: GREGORY FISH Age: 54 Sex: Female Ethnicity: White Date of : 1970 Indication: postmenopausal; screening for osteoporosis; height loss; hysterectomy; Referring Provider: NATALIA PIPER Study: Bone densitometry was performed. Exam Date: December 07, 2024 Accession number: [id number] Bone Density: Region BMD T-score Z-score Classification AP Spine(L1-L4) 1.210 1.5 2.6 Normal Femoral Neck (Left) 0.958 1.0 2.0 Normal Total Hip (Left) 1.142 1.6 2.3 Normal Femoral Neck (Right) 0.981 1.2 2.3 Normal Total Hip (Right) 1.151 1.7 2.4 Normal Total Hip Mean 1.147 1.7 2.4 Normal World Health Organization criteria for BMD impression classify patients as: Normal (T-score at or above -1.0), Osteopenia (T-score between -1.0 and -2.5), or Osteoporosis (T-score at or below -2.5). 10-year Fracture Risk: FRAX not reported because: All T-scores for Spine Total, Hip Total, Femoral Neck at or above -1.0 Clinical Information Provided by Patient: Has used the following medications: HRT (i.e. estrogen/hormone therapy), Calcium Has the following medical conditions: Hysterectomy Patient maximum height was 66 Menopause Age: 52 No regular weight bearing exercise Drinks caffeinated beverages Onset of menses at age 11 Number of children 2 Impression: The patient has normal bone mass. Discussion: BONE DENSITY IS ABOVE THE MINIMUM DESIRABLE LEVEL AT ALL SKELETAL SITES TESTED. This patient?s bone mineral density is above the minimum desirable level (T-score -1.0 or better) at all sites measured. The patient should follow a healthful lifestyle (good nutrition with adequate calcium and vitamin D, and appropriate weight-bearing exercise). Follow-Up: Consider repeating this study in 5 years or sooner if there is some new clinical indication. Reported by: RAJAT on 12/07/2024 1:41:00 PM. Reviewed, dictated and finalized at location A.
--- OUTSIDE RECORDS SUMMARY | 2024-12-07 13:02 | XMS_ITS | Clinical Summary ---
Author Organization [facility] Address [address] [place] [address] Care Team Providers Care Licensed Esthetician Name Role Phone Jones Shelton MD Primary Care Provider [phone] Source Comments [facility],non-owned Affiliates and Associated Physician Practices is amultiple site organization consisting of ambulatory clinics and hospital sitesin [place], [place], [place] and [place]. This disclosure is being madepursuant to the Care Everywhere program and may not contain all information available regarding this patient. Last updated 18.[facility] Allergies No known active allergies Medications * Be aware that medications may not be up to date on this document. Alwaysverify current medications with the patient. ATORVASTATIN CALCIUM PO Active Cholecalciferol (VITAMIN D-3 [...] Date Smoking Tobacco: Never Smokeless Tobacco: Never Comments No Sex and Gender Information Value Date Recorded Sex Assigned at Not on file Legal Sex Female 11:37 AM CDT Gender Identity Not on file Sexual Orientation Not on file Last Filed Vital Signs Vital Sign Reading Time Taken Comments Blood Pressure 126/84 05/25/2017 2:35 PM SUSTAINABILITY EXECUTIVE DIRECTOR Pulse 98 05/25/2017 2:35 PM SUSTAINABILITY EXECUTIVE DIRECTOR Temperature 36.6 C (97.9 F) 05/25/2017 2:35 PM SUSTAINABILITY EXECUTIVE DIRECTOR Respiratory Rate 16 05/25/2017 2:35 PM SUSTAINABILITY EXECUTIVE DIRECTOR Oxygen Saturation 96% 05/25/2017 2:35 PM SUSTAINABILITY EXECUTIVE DIRECTOR Inhaled Oxygen Concentration - - Weight 77.1 kg (170 lb) 05/25/2017 2:35 PM SUSTAINABILITY EXECUTIVE DIRECTOR Height 167.6 cm (5' 6) 05/25/2017 2:35 PM SUSTAINABILITY EXECUTIVE DIRECTOR Body Mass Index 27.44 05/25/2017 2:35 PM SUSTAINABILITY EXECUTIVE DIRECTOR Plan of Treatment Health Maintenance Due Date Last Done Comments COLOGUARD (AGES 45-75) - COL ON CA SCREENING 1969 COLON MONITORING 1969 COLONOSCOPY - COLON CA SCREENING 1969 CT COLONOGRAPHY - COLON CA SCREENING 1969 Colorectal Cancer Screening 1969 FIT - COLON CA SCREENING 1969 FLEX SIG - COLON CA SCREENING 1969 MAMMOGRAM 1969 HIV SCREENING 1984 HEPATITIS C SCREENING 07/27/1987 DTAP/TDAP/TD VACCINES (1 - Tdap) 1988 HEPATITIS B VACCINE (1 of 3 - 19+ 3-dose series) 1988 PAP SMEAR 1990 SCREENING FOR DIABETES 02/16/2017 PNEUMOCOCCAL VACCINE 50+ (1 of 1 - PCV) 08/01/2019 ZOSTER VACCINE (1 of 2) 08/01/2019 COVID-19 VACCINE (1 - 2023-2 5 season) 2024 DEPRESSION SCREENING 05/16/2024 INFLUENZA VACCINE (#1) 2025 HIB VACCINE Aged Out No longer eligi ble based on patient's age to complete this topic HPV VACCINE Aged Out No longer eligi ble based on patient's age to complete this topic MENINGOCOCCAL (Group B) VACC INE SHARED DECISION-MAKING Aged Out No longer eligibl e based on patient's age to complete this topic MENINGOCOCCAL GROUPS A/C/Y/W VACCINE Aged Out No longer eligible b ased on patient's age to complete this topic Insurance [facility] [place] Address: [address] [address] Care Teams Licensed Esthetician Relationship Specialty Start Date End Date Jones Shelton MD [address] [place] [address] PCP - General Family Medicine 02/16/17
--- OUTSIDE RECORDS SUMMARY | 2024-12-07 13:02 | XMS_ITS | Clinical Summary ---
Author Organization [facility] Address [address] [place] [address] Phone Care Team Providers Care Copy Messenger Name Role Phone Jones Shelton MD Primary Care Provider [phone] Allergies Active Allergy Reactions Criticality Noted Date [...] on file Legal Sex Female 3:03 PM CUSTOMS COMPLIANCE SPECIALIST Gender Identity Not on file Sexual Orientation Not on file Last Filed Vital Signs Vital Sign Reading Time Taken Comments Blood Pressure 161/82 05/12/2021 9:05 AM CUSTOMS COMPLIANCE SPECIALIST Pulse 90 05/12/2021 9:05 AM CUSTOMS COMPLIANCE SPECIALIST Temperature 36.8 C (98.3 F) 05/12/2021 9:05 AM CUSTOMS COMPLIANCE SPECIALIST Respiratory Rate 18 05/12/2021 9:05 AM CUSTOMS COMPLIANCE SPECIALIST Oxygen Saturation 97% 05/12/2021 9:05 AM CUSTOMS COMPLIANCE SPECIALIST Inhaled Oxygen Concentration - - Weight 85.4 kg (188 lb 4.8 oz) 05/11/2021 9:23 A M CUSTOMS COMPLIANCE SPECIALIST Height 167.6 cm (5' 6) 05/11/2021 9:23 AM CUSTOMS COMPLIANCE SPECIALIST Body Mass Index 30.39 05/11/2021 9:23 AM CUSTOMS COMPLIANCE SPECIALIST Plan of Treatment Health Maintenance Due Date Last Done Comments DTAP/TDAP/TD VACCINES (1 - Tdap) 1988 HEPATITIS B VACCINES (1 of 3 - 19+ 3-dose series) 1988 HPV/Cotest (21-29) 1990 CERVICAL CANCER SCREENING 08/01/1999 HPV/Cotest (30-65) 08/01/1999 PAP SMEAR 08/01/1999 BREAST CANCER SCREENING 2009 COLORECTAL SCREENING 2014 Colorectal Cancer Screening 2014 FIT-DNA Q 3 years 2014 FIT/FOBT Q 1 year 2014 Flex Sig/CT Colonography Q 5 years 2014 ZOSTER VACCINE (1 of 2) 08/01/2019 COVID-19 Vaccine ( season) 2024, 07/05/2020 INFLUENZA VACCINE (#1) 2024 Insurance Advance Directives For more information, please contact: [phone] Documents on File Type Date Recorded Patient Telephonic Nurse Case Manager Expl anation Advance Directive POA 05/07/2021 1:31 PM Advance Directive POA * Full Code (Latest Code Status on File) Date Activated Date Inactivated Comments 05/11/2021 2:23 PM 05/12/2021 1:01 PM * Full Code Date Activated Date Inactivated Comments 05/11/2021 9:27 AM 05/11/2021 2:23 PM Care Teams Copy Messenger Relationship Specialty Start Date End Date Jones Shelton MD [address] [place] [address] PCP - General Family Practice 05/07/21
--- OUTSIDE RECORDS SUMMARY | 2024-12-07 13:02 | XMS_ITS | Encounter Summary ---
Author Organization [facility] Address [address] [facility] [place] [address] Care Team Providers Care Guest Services Lead Name Role Phone Jones Shelton MD Primary Care Provider [phone] Encounter Details Date Type Department Care Team (Late [facility]) Description 07/08/2023 Lab Requisition [facility] - DermPath Lab [address] 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 DermPath Lab Received: 07/08/2023 12:30 PM Pathologist: Julissa Sullivan MD Specimen: Skin, mid crown 11:04 AM [facility] Final Diagnosis Specimen A. SKIN, mid crown: SEBORRHEIC KERATOSIS, INFLAMED; SUPERFICIAL PORTIONS OF (L82.0) (see microscopic description) 11:04 AM [facility] at [address] [employer]END[employer] Clinical History ISK vs SCC, Growing Irritated 11:04 AM [facility] Gross Description Specimen A: Received is one formalin filled container labeled with the patient's name and designated mid crown. The specimen consists of a shave biopsy measuring 6x6x1 mm. Jar 0. 11:04 AM [facility] Microscopic Description Specimen A. SKIN, mid crown: There are superficial portions of hyperkeratosis, parakeratosis, papillomatosis, and acanthosis of the epidermis. 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 11:04 AM [facility] Disclaimer An external and internal positive and negative controls are appropriate for the histochemical, immunohistochemical and immunofluorescence stain(s) in this case (if any), except where stated explicitly. The performance characteristics of the stain(s) cited in this report were developed and its performance characteristic determined by the Dermatopathology Laboratory at [facility], directed by Dr. Alfredo Berman. These tests need not be, and therefore are not, approved by the [place] Food and Drug Administration. The tests are used for clinical purposes. Billing Codes Specimen Charges Stain Charges 17858 1 11:04 AM [facility] Embedded Images 11:04 AM [facility] Pathology/Cytolo gy TISSUE SPECIMEN FROM SKIN / Unknown 07/07/2023 3:33 AM GREEN COFFEE BLENDER 07/08/2023 12:30 PM GREEN COFFEE BLENDER us Keyona Garcia DO LAB - PATHOLOGY/CYTOLOGY ORDERABLES Final Result DERMATOPATHOLOGY LABORATORY [facility] - Department of Dermatology [address] [phone] documented in this encounter Visit Diagnoses Not on filedocumented in this encounter Care Teams Guest Services Lead Relationship Specialty Start Date End Date Jones Shelton MD [address] [place] [address] PCP - General Family Medicine 02/16/17 documented as of this encounter
--- OUTSIDE RECORDS SUMMARY | 2024-12-07 13:02 | XMS_ITS ---
Author Organization [facility] Address [address] [place] [address] Care Team Providers Care Supervisor Logging Name Role Phone Carlito River Unavailable [phone] Migration, Provider Unavailable Unavailable Allergies Allergen (clinical drug ingredient) Drug/Non Drug Allergy documented on EMR Reaction Allergy Type Onset Date Status Vicodin Unknown Drug Allergy 08/11/2023 Active REASON FOR VISIT EMR-Angelo Medications Medication SIG (Take, Route, Frequency, Duration) Notes Start Date End Date Status Metoprolol Succinate *Pick stren gth-form from [employer] for eRX* 08/11/2023 Active Progesterone 100 MG Capsule Oral 08/11/2023 Active Estradiol 0.05 MG/24HR Patch Weekly Transdermal 08/11/2023 Active Ibuprofen 600 MG Tablet Oral 08/11/2023 Active Meloxicam 15 MG Tablet Oral 08/11/2023 Active Metoprolol Succinate ER 100 MG Tablet Extended Release 24 Hour Oral 08/11/2023 Active Venlafaxine HCl ER 150 MG Capsule Extended Release 24 Hour Oral 08/11/2023 Active Atorvastatin Calcium 10 MG Tablet Oral 08/11/2023 Active LYLLANA 0.05 MG/24 HR TRANSDERMAL PATCH *Reorder from [employer] for eRx and Interaction Alerts* 08/11/2023 Active Colace 100 MG Capsule Oral 08/11/2023 Active Venlafaxine HCl 37.5 MG Tablet Oral 08/11/2023 Active Zolpidem Tartrate 10 MG Tablet Oral 08/11/2023 Active Social History Social History Additional Details Category Social Info Options Details Migrated Social History Migrated Social History Alcohol Intake: Occasional 03/10/2023 Encounters Encounter Location Date Provider Diagnosis [facility] [address] [place], [place] [id number] 08/12/2024 Prov ider Migration Plan Of Treatment No Information Progress Notes * GREGORY FISH LDOB:[birth year] (54 yo F)Acc No.[id number]:08/12/2024 Patient: GREGORY JUAREZ :1970 A ge:54 Y S ex:Female Address:[address] [place] [address] Subjective: * Chief Complaints: * E MR-Angelo * Medical History: Problems: Acne Anxiety Fatigue Headache Human papilloma virus infection Insomnia Menopausal syndrome Pain in pelvis Urinary incontinence Uterine leiomyoma * 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 * Surgical History: Appendectomy (58766) laparoscopic Colonoscopy (25318356) Hernia repair (70777889) Hysterectomy (759874367) * Family History: F ather: Family history of stroke , Heart disease . P aternal Grandmother: Heart disease .?Maternal Grandmother: Heart disease . * Social History: M igrated Social History: M igrated Social History: Alcohol Intake: Occasional 03/10/2023. * Medications: T akingAtorvastatin Calcium 10 MG Tablet Oral Colace 100 MG Capsule Oral Estradiol 0.05 MG/24HR Patch Weekly Transdermal Ibuprofen 600 MG Tablet Oral Meloxicam 15 MG Tablet Oral Metoprolol Succinate , Notes to Pharmacist: *Pick strength-form from [employer] for eRX*Progesterone 100 MG Capsule Oral Venlafaxine HCl 37.5 MG Tablet Oral Zolpidem Tartrate 10 MG Tablet Oral Metoprolol Succinate ER 100 MG Tablet Extended Release 24 Hour Oral Venlafaxine HCl ER 150 MG Capsule Extended Release 24 Hour Oral LYLLANA 0.05 MG/24 HR TRANSDERMAL PATCH , Notes to Pharmacist: *Reorder from [employer] for eRx and Interaction Alerts*Taking Atorvastatin Calcium 10 MG Tablet Oral Taking Colace 100 MG Capsule Oral Taking Estradiol 0.05 MG/24HR Patch Weekly Transdermal Taking Ibuprofen 600 MG Tablet Oral Taking Meloxicam 15 MG Tablet Oral Taking Metoprolol Succinate , Notes to Pharmacist: *Pick strength-form from [facility] for eRX*Taking Progesterone 100 MG Capsule Oral Taking Venlafaxine HCl 37.5 MG Tablet Oral Taking Zolpidem Tartrate 10 MG Tablet Oral Taking Metoprolol Succinate ER 100 MG Tablet Extended Release 24 Hour Oral Taking Venlafaxine HCl ER 150 MG Capsule Extended Release 24 Hour Oral Taking LYLLANA 0.05 MG/24 HR TRANSDERMAL PATCH , Notes to Pharmacist: *Reorder from [facility] for eRx and Interaction Alerts* * Allergies: V icodin: Allergy - Onset Date 08/11/2023 * * Date:
--- OUTSIDE RECORDS SUMMARY | 2024-12-07 13:02 | XMS_ITS ---
Author Organization [facility] Address [address] [address] Care Team Providers Care Watch Commander Name Role Phone Carlito River Unavailable [phone] Results Component Value Reference Range Notes INFECTIOUS DISEASE PANEL Reviewed date:08/11/2023 12:00:00 AM Interpretation: Performing Lab: Notes/Report: Vital Signs Blood pressure systolic 114 mm Hg 08/11/19 24 Blood pressure diastolic 68 mm Hg 024 Weight 205.00 lbs 08/11/2023 Weight-kg 92.99 kg 08/11/2023 Encounters Encounter Location Date Provider Diagnosis [address] [address] 08/11/2023 Carlito River Hormone replacement therapy (postmenopausal) Z79.890 and 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 :1970 A ge:53 Y S ex:Female Date:08/11/2023 Address:[address] [place], [place] [phone] Objective: * Vitals: W t: 205.00 lbs, BP: 114/68 mm Hg, Wt-k.99 kg. Vision Examination: Assessment: * Assessment: 1. H ormone replacement therapy (postmenopausal) - Z79.890 S pecify :Src Diagnosis Name: Hormone replacement therapy 2 . E ncntr for real estate services administrator exam (general) (routine) w/o abn findings - Z01.419 ? Plan: * Imaging: * I maging: INFECTIOUS DISEASE PANEL Care Plan Details* * Electronic signature of Moses River on 12/07/2024 at 01:02 PM CDT Sign off status: Pending * Provider: Navid River M.D. Date: 08/11/2023 Generated for Jsoe Alejandro carl/Justino/Virgiliosmitting on: 12/07/2024 01:02 PM CDT
--- OUTSIDE RECORDS SUMMARY | 2024-12-07 13:02 | XMS_ITS | Encounter Summary ---
Author Organization [facility] Address [address] [place] [address] Care Team Providers Care English Composition Teacher Name Role Phone Jones Shelton MD Primary Care Provider Encounter Details Date Type Department Care Team (Late [facility] Info) Description 07/07/2023 Lab Requisition [facility] - DermPath Lab [address] [facility] [place] [place] [address] Mariela Nguyen MD [address] [facility] [address] [place] [address] Social History Tobacco Use Types Packs/Day Years [...] on filedocumented in this encounter Care Teams English Composition Teacher Relationship Specialty Start Date End Date Jones Shelton MD [address] [place] [address] PCP - General Family Medicine 02/16/17 documented as of this encounter
--- OUTSIDE RECORDS SUMMARY | 2024-12-07 13:02 | XMS_ITS ---
Author Organization [facility] Address [address] [address] Care Team Providers Care Sales Promotion Representative Name Role Phone VasquezarminCarlito [phone] Migration, Provider Unavailable Unavailable REASON FOR VISIT EMR-Angelo Encounters Encounter Location Date Provider Diagnosis [facility] [address] [place], [place] [phone] 08/11/2024 Prov ider Migration Plan Of Treatment No Information Progress Notes * GREGORY FISH LDOB:[birth year] (54 yo F)Acc No.[id number]:08/11/2024 Patient: Lianet GREGORY GLASS :1970 A ge:54 Y S ex:Female Address:[address] [place] [address], [address] Subjective: * Chief Complaints: * E MR-Angelo * * Date:
--- OUTSIDE RECORDS SUMMARY | 2024-12-07 13:02 | XMS_ITS | Clinical Summary ---
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
--- OUTSIDE RECORDS SUMMARY | 2024-12-07 13:02 | XMS_ITS | Patient Health Record ---
Author Organization [facility] Address [address] [facility] [address] [place] [address] Care Team Providers Care Driver Education Road Instructor Name Role Phone Carlito River Unavailable [phone] Migration, Provider Unavailable Unavailable Reason For Referral No Information Medications Medication SIG (Take, Route, Frequency, Duration) Notes Start Date End Date Status Metoprolol Succinate *Pick stren gth-form from [employer] for eRX* 08/11/2023 Active Progesterone 100 MG Capsule Oral 08/11/2023 Active Venlafaxine HCl 37.5 MG Tablet Oral 08/11/2023 Active Zolpidem Tartrate 10 MG Tablet Oral 08/11/2023 Active Metoprolol Succinate ER 100 MG Tablet Extended Release 24 Hour Oral 08/11/2023 Active Venlafaxine HCl ER 150 MG Capsule Extended Release 24 Hour Oral 08/11/2023 Active Atorvastatin Calcium 10 MG Tablet Oral 08/11/2023 Active LYLLANA 0.05 MG/24 HR TRANSDERMAL PATCH *Reorder from [employer] for eRx and Interaction Alerts* 08/11/2023 Active Colace 100 MG Capsule Oral 08/11/2023 Active Estradiol 0.05 MG/24HR Patch Weekly Transdermal 08/11/2023 Active Ibuprofen 600 MG Tablet Oral 08/11/2023 Active Meloxicam 15 MG Tablet Oral 08/11/2023 Active Social History Social History Additional Details Category Social Info Options Details Migrated Social History Migrated Social History Alcohol Intake: Occasional 03/10/2023 Problems Problem Type SNOMED Code ICD Code Onset Dates Problem Status W/U Status Risk Notes Problem Repeated prescription (722312489) Encounter for issue of repeat prescription (Z76.0) 03/05/202 4 Active confirmed Problem Hormone replacement therapy (436514985) Hormone replacement therapy (postmenopausal) (Z79.890) 4 Active confirmed Problem 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) w/o abn findings (Z01.419) 4 Active confirmed Encounters Encounter Location Date Provider Diagnosis [facility] [address] [place], [place] [phone] 08/11/2024 Prov ider Migration [facility] [address] [place], [place] [phone] 08/12/2024 Prov ider Migration Plan Of Treatment No Information Insurance Providers Payer Name Payer Address Payer Phone Subscriber Number Group Number Insured Name Patient Relationship to Insured Coverage Start Date Coverage End Date [facility] [address] [place] [address] [phone] [id number] GREGORY FISH Self - patient is the insured Medical (General) History Surgical History Surgery Date(Month/Year) Appendectomy (54352) laparoscopic Colonoscopy (57841379) Hernia repair (56481703) Hysterectomy (127742108)
== END 2024-12-07 12:55 | disposition home or self-care (01) ==
LOC: ANHIMG 13:00
PROVIDERS: PCP Family Medicine; Visit Provider Physician Assistant Medical
DX: Z78.0 Asymptomatic menopausal state (principal); Z13.820 Encounter for screening for osteoporosis
CPT/HCPCS: 77080